=== PATIENT | female | born 1990 | race American Indian/Alaskan Native ===

== ENCOUNTER 2018-04-22 17:34 | Emergency (ER) | payer BC ==
[2018-04-22 17:53] VITALS: BP 126/60
[2018-04-22 19:12] LABS: Basophils % (Auto) 0.4 % (0.0-1.8); Eosinophils # (Auto) 0.1 K/mm3 (0.0-0.4); Hematocrit 33.2 % (30.3-42.9); Hemoglobin 11.8 gm/dl (10.1-14.3); Lymphocytes # (Auto) 1.7 K/mm3 (1.2-5.4); Lymphocytes % (Auto) 20.6 % (13.4-35.0); Mean Corpuscular HGB Conc 35 % (30-34); Mean Corpuscular Hemoglobin 30 pg (28-32); Mean Corpuscular Volume 85 fl (79-97); Monocytes # (Auto) 1.2 K/mm3 (0.0-0.8); Monocytes % (Auto) 14.4 % (0.0-7.3); Platelet Count 287 K/mm3 (140-440); Red Blood Count 3.93 M/mm3 (3.65-5.03); Red Cell Distribution Width 14.4 % (13.2-15.2)
[2018-04-22 19:23] LABS: INR 0.88 (0.87-1.13); Partial Thromboplastin Time 24.1 Sec. (24.2-36.6)
[2018-04-22 19:29] LABS: BUN/Creatinine Ratio 15; Blood Urea Nitrogen 9 mg/dL (7-17); Calcium 9.3 mg/dL (8.4-10.2); Hemolysis Index 2
--- NOTE | 2018-04-22 21:51 | Ultrasound Report ---
FINAL REPORT PROCEDURE: Obstetrical ultrasound. TECHNIQUE: Real-time transabdominal sonography of the uterus, placenta, amniotic fluid, adnexa, and fetus was performed with image documentation. Measurements were obtained to determine age/size. M-mode Doppler was used to document heartbeat. CPT 66168 HISTORY: , nausea and vomiting, abdominal pain. COMPARISON: No prior studies are available for comparison. FINDINGS: There is a single viable fetus in breech presentation. Cardiac activity is documented at 152 beats per minute. There are no definite congenital anomalies. The amniotic fluid volume appears normal. The amniotic fluid index measures 13.6 centimeters. The placenta is posterior in location with no evidence of placenta previa. The placenta is currently grade 1. There is no evidence of abruption. The cervical length is 4.6 centimeters. The measured parameters are as follows: Biparietal diameter 6.3 centimeters, head circumference 23.9 centimeters, abdominal circumference 20.6 centimeters, femur length 4.6 centimeters. The calculated menstrual age is 25 weeks 4 days. The estimated date of confinement is 08/01/2018. IMPRESSION: Viable intrauterine fetus in breech presentation with a menstrual age of 25 weeks 4 days.
== END 2018-04-22 20:00 | disposition left against medical advice (07) ==
LOC: ED 17:34
DX: R07.89 Other chest pain (principal); R42 Dizziness and giddiness; R51 Headache; R11.2 Nausea with vomiting, unspecified; Z53.21 Procedure and treatment not carried out due to patient leaving prior to being seen by health care provider
CPT/HCPCS: 36415; 76805; 80048; 82962; 84484; 84702; 85025; 85610; 85730; 93005; 93010